=== PATIENT | male | born 1940 | race Caucasian/White ===

== ENCOUNTER 2023-09-11 16:55 | Inpatient (IN) | payer MEDICARE, BC ==
[~2023-09-11] VITALS: Ht 172.7 cm; Wt 90.7 kg
[2023-09-11] MEDS ORDERED: ASPI81TA31 PO (17:09)
[2023-09-11] MEDS: MIDODRINE HCL 5 MG TABLET PO STA (17:21)
[2023-09-11 18:00] LABS: BASOPHILS % (AUTO) 0.3 % (0.0-2.0); EOSINOPHILS # (AUTO) 0.2 K/uL (0.0-0.7); EOSINOPHILS % (AUTO) 1.8 % (0.0-7.0); HEMOGLOBIN 12.1 g/dL (12.5-16.3); LYMPHOCYTES # (AUTO) 0.4 K/uL (0.8-4.8); LYMPHOCYTES % (AUTO) 3.7 % (20.5-51.5); MEAN CORPUSCULAR HEMOGLOBIN 29.7 uug (23.8-33.4); MEAN CORPUSCULAR HGB CONC 33 g/dL (32.5-36.3); MEAN CORPUSCULAR VOLUME 90.7 fL (73.0-96.2); MONOCYTES # (AUTO) 1.1 K/uL (0.1-1.30); MONOCYTES % (AUTO) 11.2 % (0.0-11.0); NEUTROPHILS # (AUTO) 8.2 K/uL (1.8-8.9); PLATELET COUNT (AUTO) 261 K/uL (152-348); RED BLOOD CELL COUNT(AUTO) 4.08 MIL/uL (4.06-5.63); RED CELL DISTRIBUTION WIDTH 16.7 % (12.1-16.2); WHITE BLOOD COUNT (AUTO) 9.9 K/uL (3.6-10.2)
[2023-09-11 18:02] LABS: DIFFERENTIAL COMMENT 1
[2023-09-11 18:06] LABS: *BILIRUBIN,URIN 1+ (NEGATIVE); *CLARITY,URINE CLEAR (CLEAR); *COLOR,URINE DARK YELLOW (YELLOW); *KETONES,URINE NEGATIVE (NEGATIVE); *PROTEIN,URINE 1+ (NEGATIVE); LEUKOCYTE ESTERASE ,URINE NEGATIVE (NEGATIVE); NITRITE, URINE NEGATIVE (NEGATIVE); UGLUCOSE 2+ (NEGATIVE)
[2023-09-11 18:10] LABS: CALCIUM 9.9 mg/dL (8.5-10.1); CARBON DIOXIDE 31 mmol/L (21-32); CHLORIDE 103 mmol/L (98-107); CREATININE 0.8 mg/dL (0.6-1.3); GLUCOSE 99 mg/dL (74-106); POTASSIUM 4.1 mmol/L (3.5-5.1); SODIUM SERUM 140 mmol/L (136-145); UREA NITROGEN, BLOOD 19 mg/dL (7-18)
[2023-09-11 18:11] LABS: *BLOOD, URINE TRACE (NEGATIVE)
[2023-09-11 18:13] LABS: AMMONIA 15 umol/L (11-32)
[2023-09-11 18:15] LABS: ETHANOL < 3 MG/DL (0-10)
[2023-09-11 18:18] LABS: *AMPHETAMINE, URINE NEGATIVE (NEGATIVE); *BARBITURATE, URINE NEGATIVE (NEGATIVE); *BENZODIAZEPINE, URINE NEGATIVE (NEGATIVE); *CANNABINOID, URINE NEGATIVE (NEGATIVE); *COCCAINE, URINE NEGATIVE (NEGATIVE); *OPIATE, URINE NEGATIVE (NEGATIVE); *PHENCYCLIDINE SCREEN,URINE NEGATIVE (NEGATIVE); FENTANYL, URINE NEGATIVE (NEGATIVE)
[2023-09-11 18:29] LABS: ALBUMIN 2.4 g/dL (3.4-5.0); ALKALINE PHOSPHATASE 98 U/L (50-136); ASPARTATE AMINOTRANSFERASE 12 U/L (15-37); BILIRUBIN,DIRECT 0.9 mg/dL (0.0-0.2); BILIRUBIN,TOTAL 2.8 mg/dL (0.2-1.0); TOTAL PROTEIN, SERUM 5.9 g/dL (6.4-8.2)
[2023-09-11 18:30] LABS: ACETAMINOPHEN < 10.0 ug/mL (10-30)
[2023-09-11] MEDS ORDERED: ACETAMINOPHEN 325 MG TABLET PO PRN (18:30)
[2023-09-11] MEDS ORDERED: IV NS 1000 ML 1,000 ML IV PRN (18:30)
[2023-09-11] MEDS ORDERED: ONDANSETRON 4 MG/2 ML VIAL IV PRN (18:30)
[2023-09-11] MEDS ORDERED: MAGNESIUM HYDROXIDE 30 ML LIQUID UDC PO PRN (18:30)
[2023-09-11] MEDS: ACETAMINOPHEN 650 MG SUPP.RECT RC ONE (18:30)
[2023-09-11] MEDS ORDERED: DUTA0.5C PO (18:32)
[2023-09-11] MEDS ORDERED: DAPA5TAB PO (18:32)
[2023-09-11] MEDS ORDERED: ASCO500C18 PO (18:32)
[2023-09-11] MEDS ORDERED: THIA100T74 PO (18:32)
[2023-09-11] MEDS ORDERED: POTA-88 PO (18:32)
[2023-09-11] MEDS ORDERED: FURO-151 PO (18:32)
[2023-09-11] MEDS ORDERED: SILO8CAP2 PO (18:32)
[2023-09-11] MEDS ORDERED: MEMA28CA PO (18:32)
[2023-09-11] MEDS ORDERED: EZET10TA15 PO (18:32)
[2023-09-11] MEDS ORDERED: ATOR40TA PO (18:32)
[2023-09-11] MEDS ORDERED: LATA7.5D EACHEYE (18:32)
[2023-09-11] MEDS ORDERED: BRIM5DRO2 EACHEYE (18:32)
[2023-09-11] MEDS ORDERED: CARB-110 PO (18:32)
[2023-09-11] MEDS ORDERED: PRED2.5T PO (18:32)
[2023-09-11] MEDS ORDERED: ABIR250T PO (18:32)
[2023-09-11] MEDS ORDERED: MIDO10TA PO (18:32)
[2023-09-11] MEDS ORDERED: CYAN250T3 PO (18:32)
[2023-09-11 18:44] LABS: ALANINE AMINOTRANSFERASE < 6 U/L (16-63)
[2023-09-11 18:52] LABS: RBC,URINE 0-3 /HPF (0-3); SQUAMOUS EPITHELIAL CELL,UR FEW /HPF (NONE SEEN); WBC,URINE NONE SEEN /HPF (0-3)
[2023-09-11 18:53] LABS: BACTERIA,URINE FEW /HPF (NONE SEEN); MUCUS,URINE MODERATE /LPF (0-FEW)
[2023-09-11] MEDS: IV NORMAL SALINE 500 ML BAG IV ONE (19:00)
[2023-09-11 19:10] LABS: THYROID STIMULATING HORMONE 2.779 mIU/mL (0.358-3.740)
[2023-09-11] MEDS ORDERED: VANCOMYCIN IV 200 ML ONE (19:17)
[2023-09-11] MEDS ORDERED: CEFEPIME HCL 1 G VIAL ONE (19:17)
[2023-09-11] MEDS: CEFEPIME HCL 1 G in IV DEXTROSE 5% 50 ML IV ONE ×2 (19:20→19:30)
[2023-09-11] MEDS ORDERED: DEXTROSE 50% 50 ML DISP.SYRIN IV PRN (19:30)
[2023-09-11] MEDS ORDERED: INSULIN REGULAR, HUMAN 300 UNIT/3 ML VIAL SQ PRN (19:30)
[2023-09-11] MEDS ORDERED: IOHEXOL 350 100 ML INFUS..BTL ONE (19:31)
[2023-09-11] MEDS ORDERED: IV NORMAL SALINE 250 ML IV ONE (19:31)
[2023-09-11] MEDS ORDERED: SWABABLE VALVE TRANSFER SET EA MC ONE (19:32)
[2023-09-11] MEDS: VANCOMYCIN IV 1,000 MG in IV DEXTROSE 5% 250 ML IV ONE (20:15)
[2023-09-11] MEDS ORDERED: ACETAMINOPHEN 650 MG SUPP.RECT RC ONE (20:40)
[2023-09-11] MEDS: BLOOD SUGAR DIAGNOSTIC 1 EACH STRIP VI SCH (21:25)
[2023-09-11] MEDS ORDERED: CEFEPIME HCL 1 G in IV DEXTROSE 5% 50 ML IV SCH (22:00)
[2023-09-11 23:00] VITALS: BP 91/38; TEMP 99
[2023-09-12] VITALS (81 sets, daily range): BP systolic 71–155; BP diastolic 48–112; TEMP 97.5–100.2; O2SAT 90–100
[2023-09-12] MEDS ORDERED: NOREPINEPHRINE BITARTRATE 4 MG/4 ML VIAL IV ONE (00:45)
[2023-09-12] MEDS: NOREPINEPHRINE BITARTRATE 8 MG in IV NORMAL SALINE 242 ML IV PRN (03:15)
[2023-09-12 06:06] LABS: BASOPHILS % (AUTO) 0.3 % (0.0-2.0); EOSINOPHILS # (AUTO) 0.1 K/uL (0.0-0.7); HEMATOCRIT 36.4 % (36.7-47.1); HEMOGLOBIN 12.2 g/dL (12.5-16.3); LYMPHOCYTES # (AUTO) 0.3 K/uL (0.8-4.8); LYMPHOCYTES % (AUTO) 2.6 % (20.5-51.5); MEAN CORPUSCULAR HGB CONC 34 g/dL (32.5-36.3); MEAN CORPUSCULAR VOLUME 89.5 fL (73.0-96.2); MONOCYTES # (AUTO) 1.5 K/uL (0.1-1.30); MONOCYTES % (AUTO) 12.5 % (0.0-11.0); NEUTROPHILS # (AUTO) 9.9 K/uL (1.8-8.9); NEUTROPHILS % (AUTO) 83.6 % (38.5-71.5); PLATELET COUNT (AUTO) 282 K/uL (152-348); RED BLOOD CELL COUNT(AUTO) 4.07 MIL/uL (4.06-5.63); RED CELL DISTRIBUTION WIDTH 16.3 % (12.1-16.2); WHITE BLOOD COUNT (AUTO) 11.9 K/uL (3.6-10.2)
[2023-09-12 06:20] LABS: DIFFERENTIAL COMMENT 1
[2023-09-12 06:24] LABS: CALCIUM 9.4 mg/dL (8.5-10.1); CREATININE 0.8 mg/dL (0.6-1.3); MAGNESIUM 2.1 mg/dL (1.8-2.4); PHOSPHOROUS 2.9 mg/dL (2.5-4.9); POTASSIUM 3.7 mmol/L (3.5-5.1)
[2023-09-12] MEDS: CEFEPIME HCL 1 G in IV DEXTROSE 5% 50 ML IV SCH (08:12)
[2023-09-12] MEDS: EZETIMIBE 10 MG TABLET PO SCH (09:00)
[2023-09-12] MEDS ORDERED: ASCORBIC ACID 100 MG PO SCH (09:00)
[2023-09-12] MEDS: DUTASTERIDE 0.5 MG CAPSULE PO SCH (09:00)
[2023-09-12] MEDS: CYANOCOBALAMIN 100 MCG TABLET PO SCH (09:00)
[2023-09-12] MEDS: THIAMINE HCL 100 MG TABLET PO SCH (09:00)
[2023-09-12] MEDS: MIDODRINE HCL 5 MG TABLET PO SCH (09:00)
[2023-09-12] MEDS ORDERED: Medication Not On Formulary EA (Silodosin (Rapaflo) 8 MG) PO SCH (09:00)
[2023-09-12] MEDS: ASPIRIN 81 MG TAB.CHEW PO SCH (09:00)
[2023-09-12] MEDS ORDERED: Medication Not On Formulary EA (Dapagliflozin Propanediol (Farxiga) 5 MG) PO SCH (09:00)
[2023-09-12] MEDS: ASCORBIC ACID 500 MG TABLET PO SCH (09:00)
[2023-09-12] MEDS ORDERED: CARB1TAB31 PO (12:42)
[2023-09-12] MEDS: DAPAGLIFLOZIN PROPANEDIOL 5 MG TABLET PO SCH (12:44)
[2023-09-12] MEDS: CARBIDOPA/LEVODOPA 10-100MG TABLET PO SCH (13:00)
[2023-09-12] MEDS: VANCOMYCIN IV 1,250 MG in IV DEXTROSE 5% 250 ML IV SCH (13:33)
[2023-09-12] MEDS: IV D5 1/2 NS 1000 ML 1,000 ML IV SCH (13:39)
[2023-09-12] MEDS: LEVALBUTEROL HCL NEB 0.63 MG/3 ML NEBU NEB SCH (14:53)
[2023-09-12] MEDS: FUROSEMIDE 20 MG/2 ML VIAL IV ONE (15:07)
[2023-09-12] MEDS: ACETAMINOPHEN 650 MG SUPP.RECT RC PRN (15:51)
[2023-09-12] MEDS: REMEDY ESSENTIAL ZINC PASTE 113 GM TP PRN (16:31)
[2023-09-12] MEDS: MEMANTINE HCL 10 MG TABLET PO SCH (17:00)
[2023-09-12] MEDS ORDERED: LEVALBUTEROL HCL NEB 0.63 MG/3 ML NEBU ONE ×2 (19:13→23:54)
[2023-09-13] VITALS (100 sets, daily range): BP systolic 52–166; BP diastolic 27–127; TEMP 97.7–99.4; O2SAT 88–100
[2023-09-13 05:24] LABS: BASOPHILS % (AUTO) 0.4 % (0.0-2.0); EOSINOPHILS # (AUTO) 0.4 K/uL (0.0-0.7); EOSINOPHILS % (AUTO) 3.9 % (0.0-7.0); HEMATOCRIT 33.9 % (36.7-47.1); HEMOGLOBIN 11.2 g/dL (12.5-16.3); LYMPHOCYTES # (AUTO) 0.4 K/uL (0.8-4.8); LYMPHOCYTES % (AUTO) 3.9 % (20.5-51.5); MEAN CORPUSCULAR HEMOGLOBIN 29.4 uug (23.8-33.4); MEAN CORPUSCULAR HGB CONC 33 g/dL (32.5-36.3); MEAN CORPUSCULAR VOLUME 89.3 fL (73.0-96.2); MONOCYTES # (AUTO) 1.1 K/uL (0.1-1.30); MONOCYTES % (AUTO) 11.1 % (0.0-11.0); NEUTROPHILS # (AUTO) 8.2 K/uL (1.8-8.9); NEUTROPHILS % (AUTO) 80.7 % (38.5-71.5); PLATELET COUNT (AUTO) 262 K/uL (152-348); RED BLOOD CELL COUNT(AUTO) 3.79 MIL/uL (4.06-5.63); RED CELL DISTRIBUTION WIDTH 16.3 % (12.1-16.2); WHITE BLOOD COUNT (AUTO) 10.2 K/uL (3.6-10.2)
[2023-09-13 05:40] LABS: CALCIUM 8.5 mg/dL (8.5-10.1); CREATININE 0.8 mg/dL (0.6-1.3)
[2023-09-13 05:45] LABS: DIFFERENTIAL COMMENT 1
[2023-09-13] MEDS: POTASSIUM CHLORIDE 50 ML IV SCH (07:42)
[2023-09-13] MEDS: SILODOSIN 8 MG PO SCH (08:15)
[2023-09-13] MEDS: FUROSEMIDE 20 MG/2 ML VIAL IV ONE (09:20)
[2023-09-13] MEDS ORDERED: MORPHINE SULFATE PF IV DRIP 100 MG in IV DEXTROSE 5% 96 ML IV PRN (19:00)
[2023-09-13] MEDS: DEXTROSE 5% IV PRN (20:38)
[2023-09-13] MEDS: MORPHINE SULFATE IV PRN (20:38)
[2023-09-13] MEDS: LORAZEPAM 2 MG/1 ML VIAL IV PRN ×2 (21:09→23:29)
[2023-09-13] MEDS ORDERED: SCOPOLAMINE PATCH 1 MG/72 HRS PATCH TD ONE (22:53)
[2023-09-13] MEDS: SCOPOLAMINE PATCH 1 MG/72 HRS PATCH TD ONE (22:58)
[2023-09-14 00:05] VITALS: BP 0/0
== END 2023-09-14 02:15 | DRG 871 ==
LOC: EDBD 16:57 → ER 16:57 → TRANSITION 19:40 → CCU 09-12 05:18 → MEDSURG3 09-13 23:21
PROVIDERS: ADMIT Nurse Practitioner Acute Care; ATTEND Nurse Practitioner Acute Care
PROC: 02HV33Z Insertion of Infusion Device into Superior Vena Cava, Percutaneous Approach (ICD-10-PCS; principal; 2023-09-11)
DX: A41.9 Sepsis, unspecified organism (principal); E43 Unspecified severe protein-calorie malnutrition; G92.8 Other toxic encephalopathy; J18.9 Pneumonia, unspecified organism; J69.0 Pneumonitis due to inhalation of food and vomit; R65.21 Severe sepsis with septic shock; N17.0 Acute kidney failure with tubular necrosis; Z66 Do not resuscitate; J96.01 Acute respiratory failure with hypoxia; I48.20 Chronic atrial fibrillation, unspecified; I42.9 Cardiomyopathy, unspecified; D68.59 Other primary thrombophilia; I13.0 Hypertensive heart and chronic kidney disease with heart failure and stage 1 through stage 4 chronic kidney disease, or unspecified chronic kidney disease; Z51.5 Encounter for palliative care; Z95.0 Presence of cardiac pacemaker; R62.7 Adult failure to thrive; E86.0 Dehydration; I34.0 Nonrheumatic mitral (valve) insufficiency; Z74.01 Bed confinement status; E88.09 Other disorders of plasma-protein metabolism, not elsewhere classified; Z68.30 Body mass index [BMI] 30.0-30.9, adult; I50.9 Heart failure, unspecified; G31.83 Neurocognitive disorder with Lewy bodies; F02.80 Dementia in other diseases classified elsewhere, unspecified severity, without behavioral disturbance, psychotic disturbance, mood disturbance, and anxiety; E78.5 Hyperlipidemia, unspecified; E11.22 Type 2 diabetes mellitus with diabetic chronic kidney disease; N18.9 Chronic kidney disease, unspecified; I25.10 Atherosclerotic heart disease of native coronary artery without angina pectoris; Z87.440 Personal history of urinary (tract) infections
CPT/HCPCS: 36415; 71045; 83605; 83735; 84100; 84443; 84484; 85025; 85730; 87040; 93005; 94640; 94664; A4606; A4663; A6209; G0378; G0480; J0692; J1940; J2060; J2270; J2274; J3370; J3480; J3490; J7040; J7050; J7614; Q9967